=== PATIENT | male | born 1945 | race Caucasian/White ===

== ENCOUNTER 2016-05-14 10:03 | Day surgery (SDC) | payer OTHER ==
--- NOTE | ~2016-05-14 | EGD ---
EGD REPORT [facility] [address] [place] [id number] NAME: MANE ZAMUDIO : 41 STATUS : REG [facility]#: [id number] AGE: 71 ADM/REG DATE : 05/14/16 MR#: [id number] REPORT SERV DATE: 05/14/16 DICTATED BY: MYA BRUCE DATE: 05/14/16 REPORT STATUS : Draft TRANSCRIBED BY: [facility] DATE: 05/14/16 Endoscopy Center Patient Name: Mane Zamudio Date of : 1945 Attending MD: MYA BRUCE MD Procedure Date No Time: 05/14/2016 Procedure: Upper GI endoscopy Indications: Gastro-esophageal reflux disease, Cirrhosis rule out esophageal varices Referring MD: MARK NICOLE MD, KIM MORROW Medicines: Propofol per Anesthesia Complications: No immediate complications. Procedure: Pre-Anesthesia Assessment: - ASA Grade Assessment: III - A patient with severe systemic disease. - After reviewing the risks and benefits, the patient was deemed in satisfactory condition to undergo the procedure. After obtaining informed consent, the endoscope was passed under direct vision. Throughout the procedure, the patient's blood pressure, pulse, and oxygen saturations were monitored continuously. The GIF [id number] was introduced through the mouth, and advanced to the third part of duodenum. The upper GI endoscopy was accomplished without difficulty. The patient tolerated the procedure well. Findings: The examined esophagus was normal. One 3 mm polyp with no bleeding was found 29 cm from the incisors. The polyp was removed with a cold biopsy forceps. Resection and retrieval were complete. There is no endoscopic evidence of varices in the lower third of the esophagus. A large hiatus hernia was present. as seen on retroflexion Diffuse mild inflammation characterized by congestion (edema) and erythema was found in the entire examined stomach. There is no endoscopic evidence of varices in the cardia. Localized mild inflammation characterized by congestion (edema) and erythema was found in the duodenal bulb. A single 3 mm sessile polyp with no bleeding was found in the duodenal bulb. The polyp was removed with a cold biopsy forceps. Resection and retrieval were complete. The 2nd part of the duodenum and 3rd part of the duodenum were normal. EGD REPORT [address] [address] NAME: MANE ZAMUDIO : [birth year] STATUS : REG [facility] PAT#: [id number] AGE: 71 ADM/REG DATE : 05/14/16 MR#: [id number] REPORT SERV DATE: 05/14/16 DICTATED BY: MYA BRUCE DATE: 05/14/16 REPORT STATUS : Draft TRANSCRIBED BY: [employer] DATE: 05/14/16 Impression: - Normal esophagus. - Esophageal polyp(s) were found. Resected and retrieved. - Hiatus hernia. - Gastritis. - Duodenitis. - A single duodenal polyp. Resected and retrieved. - Normal 2nd part of the duodenum and 3rd part of the duodenum. Recommendation: - Patient has a contact number available for emergencies. The signs and symptoms of potential delayed complications were discussed with the patient. Return to normal activities tomorrow. Written discharge instructions were provided to the patient. - Return to previous diet. - Continue present medications. - Await pathology results. - Return to my office as previously scheduled. - Discharge patient to home. Procedure Code(s): --- Professional --- 28629, Esophagogastroduodenoscopy, flexible, transoral; with biopsy, single or multiple Diagnosis Code(s): --- Professional --- K22.8, Other specified diseases of esophagus K44.9, Diaphragmatic hernia without obstruction or gangrene K29.70, Gastritis, unspecified, without bleeding K29.80, Duodenitis without bleeding K31.7, Polyp of stomach and duodenum K21.9, Gastro-esophageal reflux disease without esophagitis K74.60, Unspecified cirrhosis of liver CPT copyright 2013 [employer]. All rights reserved. The codes documented in this report are preliminary and upon hydraulic pile hammer operator review may be revised to meet current compliance requirements. Mya Bruce MD MYA BRUCE MD 05/14/2016 12:09 PM This report has been signed electronically. Number of Addenda: 0 EGD REPORT [facility] [address] [place] [id number] NAME: MANE ZAMUDIO : 41 STATUS : REG [facility]#: [id number] AGE: 71 ADM/REG DATE : 05/14/16 MR#: [id number] REPORT SERV DATE: 05/14/16 DICTATED BY: MYA BRUCE DATE: 05/14/16 REPORT STATUS : Draft TRANSCRIBED BY: [employer] DATE: 05/14/16 Note Initiated On: 05/14/2016 11:10 AM Scope Withdrawal Time 0 hours 0 minutes 0 seconds [address] [place] [address]
== END 2016-05-14 23:59 | disposition home health service (06) ==
LOC: DMU 10:03
PROVIDERS: Internal Medicine Gastroenterology
PROC: 0DB98ZX Excision of Duodenum, Via Natural or Artificial Opening Endoscopic, Diagnostic (ICD-10-PCS; 2016-05-14)
PROC: 0DB58ZX Excision of Esophagus, Via Natural or Artificial Opening Endoscopic, Diagnostic (ICD-10-PCS; principal; 2016-05-14 11:00)
DX: D13.0 Benign neoplasm of esophagus (principal); K29.80 Duodenitis without bleeding; K44.9 Diaphragmatic hernia without obstruction or gangrene; K29.70 Gastritis, unspecified, without bleeding; K21.9 Gastro-esophageal reflux disease without esophagitis
CPT/HCPCS: 88305